=== PATIENT | male | born 1965 | race Caucasian/White ===

== ENCOUNTER → 2017-08-26 | Outpatient (CLI) | payer OTHER ==
[2017-08-25 11:32] LABS: BUN 11 mg/dl (7-24); CHLORIDE 103 mmol/L (98-107); CHOLESTEROL 255 mg/dL (<200); CREATININE 0.97 mg/dL (0.70-1.30); POTASSIUM 4.1 mmol/L (3.5-5.1); SODIUM 138 mmol/L (136-145)
[~2017-08-26] MED LIST: ANAPROX DS550 MG PO; BAYER ASPIRIN C81 MG PO; LEVOTHYROXIN0.125 MG PO; NORCO 325 MG-51 TAB PO; OMEPRAZOLE40 MG PO; PEN-VEE K500 MG PO; PROVENTIL0.09 MG/AC IH; SIMVASTATIN40 MG PO; SYNTHROID,LEVO50 MCG PO; VISTARIL50 MG PO; ZANTAC150 MG PO; ZITHROMAX Z PA250 MG PO; ZOLOFT100 MG PO
== END | disposition home or self-care (01) ==
LOC: LAB 08-25 02:57 → RESCLI 08-25 02:57
PROVIDERS: Internal Medicine
DX: E78.5 Hyperlipidemia, unspecified (principal); E03.9 Hypothyroidism, unspecified; H71.93 Unspecified cholesteatoma, bilateral; K21.9 Gastro-esophageal reflux disease without esophagitis; F32.9 Major depressive disorder, single episode, unspecified; F41.1 Generalized anxiety disorder; J30.2 Other seasonal allergic rhinitis; Z72.0 Tobacco use; Z71.6 Tobacco abuse counseling

== ENCOUNTER → 2018-03-02 | Outpatient (CLI) | payer OTHER ==
[2018-03-02 11:19] LABS: HEMATOCRIT 42.5 % (42.0-52.0); HEMOGLOBIN 14.2 g/dl (14.0-18.0); MEAN CORPUSCULAR HGB 31.4 pg (27.0-31.0); MEAN CORPUSCULAR HGB CONC 33.4 g/dl (33.0-37.0); MEAN PLATELET VOLUME 9.3 fl (9.6-12.3); RED BLOOD COUNT 4.52 10*6/uL (4.50-5.90); RED CELL DISTRI WIDTH 13.1 % (0-14.5); WHITE BLOOD COUNT 7.7 10*3/uL (4.8-10.8)
[2018-03-02 11:36] LABS: ALBUMIN 3.6 gm/dl (3.1-4.5); BUN 11 mg/dl (7-24); CHLORIDE 102 mmol/L (98-107); CHOLESTEROL 217 mg/dL (<200); CREATININE 1.24 mg/dL (0.70-1.30); SGOT/AST 17 IU/L (3-35); SGPT/ALT 22 U/L (12-78); SODIUM 137 mmol/L (136-145); TOTAL PROTEIN 8.2 gm/dL (6.4-8.2); TRIGLYCERIDES 219 mg/dl (<150); VLDL CHOLESTEROL 44 mg/dL (6-40)
[2018-03-02 11:37] LABS: ALKALINE PHOSPHATASE 112 U/L (45-117); HDL CHOLESTEROL 37 mg/dl (40-60); LDL CHOLESTEROL 136 mg/dL (9-159)
== END | disposition home or self-care (01) ==
LOC: LAB 10:32
PROVIDERS: Registered Nurse Flight
DX: E78.5 Hyperlipidemia, unspecified (principal); E03.9 Hypothyroidism, unspecified; F32.9 Major depressive disorder, single episode, unspecified

== ENCOUNTER 2018-10-26 12:58 | Emergency (ER) | payer OTHER ==
[~2018-10-26] VITALS: Wt 79.4 kg
[2018-10-26] MEDS ORDERED: FLONASE ALLERG9.9 ML NAS (13:42)
[2018-10-26] MEDS ORDERED: PREDNISONE50 MG PO (13:42)
[2018-10-26] MEDS ORDERED: AMOXICILLIN500 M2 PO (13:42)
== END 2018-10-26 14:06 | disposition home or self-care (01) ==
LOC: ED 12:58
DX: J01.90 Acute sinusitis, unspecified (principal); Z79.899 Other long term (current) drug therapy; Z79.82 Long term (current) use of aspirin

== ENCOUNTER → 2020-05-24 | Outpatient (CLI) | payer OTHER ==
[~2020-05-24] MED LIST changes: +AMOXICILLIN500 M2 PO; +FLONASE ALLERG9.9 ML NAS; +PREDNISONE50 MG PO
== END | disposition home or self-care (01) ==
LOC: COVID19 03:38
DX: Z03.818 Encounter for observation for suspected exposure to other biological agents ruled out (principal); R69 Illness, unspecified

== ENCOUNTER → 2020-12-13 | Outpatient (CLI) | payer OTHER | END | disposition home or self-care (01) | LOC: COVID19 15:39 | PROVIDERS: ATTEND Nurse Practitioner Primary Care | DX: Z20.822 Contact with and (suspected) exposure to COVID-19 (principal) ==

== ENCOUNTER → 2023-02-17 | Outpatient (CLI) | payer OTHER | END | disposition home or self-care (01) | LOC: CT 01:12 | PROVIDERS: ATTEND Physician Assistant | DX: F17.210 Nicotine dependence, cigarettes, uncomplicated (principal); R91.1 Solitary pulmonary nodule ==

== ENCOUNTER 2024-10-26 09:20 | Emergency (ER) | payer OTHER ==
[~2024-10-26] VITALS: Ht 172 cm; Wt 68.0 kg
[2024-10-26] MEDS ORDERED: Acetaminophen/Hydrocodone 5 MG/325 MG TABLET PO ONE (09:45)
== END 2024-10-26 11:02 | disposition home or self-care (01) ==
LOC: ED 09:20
DX: S93.692A Other sprain of left foot, initial encounter (principal); Z79.899 Other long term (current) drug therapy; Z79.82 Long term (current) use of aspirin; Z90.49 Acquired absence of other specified parts of digestive tract; Z98.890 Other specified postprocedural states; W22.09XA Striking against other stationary object, initial encounter; Y93.89 Activity, other specified; Y92.89 Other specified places as the place of occurrence of the external cause; Y99.8 Other external cause status